=== PATIENT | male | born 1960 | race Caucasian/White ===

== ENCOUNTER 2017-08-20 15:04 | Emergency (ER) | payer MEDICAID, MEDICARE ==
[~2017-08-20 15:04] MED LIST: ESCI20TA PO; FINA1TAB2 PO; GABA300C3 PO; IBUP800T23 PO; LISI-360 PO; LOPI600T PO; PRIL40CA PO; PRIM50 PO; RANI150T PO; REST30CA PO; SERT-129 PO; TAMS0.4C4
[2017-08-20 15:11] VITALS: BP 165/95; PULSE 72; RESP 18; TEMP 98.1; O2SAT 99
[2017-08-20] MEDS ORDERED: AMLO10TA2 PO (15:28)
[2017-08-20] MEDS ORDERED: CYCL5TAB PO (15:28)
[2017-08-20] MEDS ORDERED: BACL10TA PO (15:28)
[2017-08-20] MEDS ORDERED: HYDR-3516 PO (15:28)
[2017-08-20] MEDS ORDERED: GABA300C5 PO (15:28)
[2017-08-20] MEDS ORDERED: TEMA15CA PO (15:28)
[2017-08-20] MEDS ORDERED: OMEP20TA93 PO (15:28)
[2017-08-20] MEDS ORDERED: GEMF600T PO (15:28)
[2017-08-20] MEDS ORDERED: ESCI20TA PO (15:28)
[2017-08-20] MEDS ORDERED: BACT800T5 PO (16:03)
--- NOTE | 2017-08-20 16:03 | PD ---
HPI Chief Complaint: Skin Problem Time Seen by Provider: 15:52 Travel History International Travel<30 days: No Contact w/Intl Traveler<30days: No Traveled to known affect area: No History of Present Illness HPI This is a 57-year-old male here with possible wound infection to the right lower extremity. He sustained an abrasion to the area approximately 2 weeks ago. The area was healing and he has been applying local wound care with hydrogen peroxide and antibiotic ointment. Today he noticed the area looks slightly red and swollen. No fever chills. Symptom severity is mild to moderate. No aggravating or alleviating factors. PFSH Past Medical History Anxiety: Yes Depression: Yes Cancer: No Cardiovascular Problems: No Diabetes: No Diminished Hearing: No Endocrine: No Genitourinary: No Hepatitis: No Hiatal Hernia: No Hypertension: Yes Immune Disorder: No Medical other: Yes (HYPERLIPIDEMIA) Musculoskeletal: Yes (CHRONIC BACK PAIN) Neurologic: No Psychiatric: No Reproductive: No Respiratory: No Thyroid Disease: No Influenza Vaccination: No Past Surgical History Abdominal Surgery: No Body Medical Devices: "BACK HARDWARE" Cardiac Surgery: No Ear Surgery: No Endocrine Surgery: No Eye Surgery: No Genitourinary Surgery: No Gynecologic Surgery: Yes Joint Replacement: No Neurologic Surgery: No Oral Surgery: No Pacemaker: No Thoracic Surgery: No Social History Alcohol Use: Yes (DAILY) Tobacco Use: No Substance Use: No Allergies-Medications (Allergen,Severity, Reaction): Coded Allergies: Penicillins (Verified Adverse Reaction, Unknown, UNKNOWN, 08/20/17) FROM CHILDHOOD STATES UNKNOWN REACTION. Reported Meds & Prescriptions Reported Meds & Active Scripts Active Bactrim DS (Sulfamethoxazole-Trimethoprim) 800-160 Mg Tab 1 Tab PO BID Reported Omeprazole 20 Mg Tab 20 Mg PO BID Flexeril (Cyclobenzaprine HCl) 5 Mg Tab 5 Mg PO TID Gemfibrozil 600 Mg Tab 600 Mg PO BIDAC Take 30 minutes prior to breakfast and dinner. Gabapentin 300 Mg Cap 300 Mg PO QID Escitalopram (Escitalopram Oxalate) 20 Mg Tab 20 Mg PO DAILY Baclofen 10 Mg Tab 10 Mg PO TID Amlodipine (Amlodipine Besylate) 10 Mg Tab 10 Mg PO DAILY Hydrocodone-Acetamin 5-325 mg (Hydrocodone/Acetaminophen) 5 Mg-325 Mg Tablet 1 Tab PO Q4-6H PRN Temazepam 15 Mg Cap 15 Mg PO HS PRN Review of Systems Except as stated in HPI: all other systems reviewed are Neg General / Constitutional: No: Fever Eyes: No: Visual changes HENT: No: Headaches Cardiovascular: No: Chest Pain or Discomfort Respiratory: No: Shortness of Breath Gastrointestinal: No: Abdominal Pain Genitourinary: No: Dysuria Physical Exam Narrative GENERAL: Alert & well appearing 57 year old male. SKIN: Warm and dry. HEAD: Normocephalic. EYES: No injection or drainage. NECK: Supple RESPIRATORY: No accessory muscle use. GASTROINTESTINAL: nondistended. Musculoskeletal: No cyanosis or edema. Right lower extremity: 1 cm dry scab to the anterior aspect of the ankle. Scab is surrounded by an area of induration without fluctuance. No surrounding cellulitis or lymphangitis. BACK: Nontender without obvious deformity. No CVA tenderness. Data Data Last Documented VS Vital Signs Date Time Temp Pulse Resp B/P (MAP) Pulse Ox O2 Delivery O2 Flow Rate FiO2 08/20/17 15:11 98.1 72 18 165/95 (118) 99 MDM Medical Decision Making Medical Screen Exam Complete: Yes Emergency Medical Condition: Yes Differential Diagnosis Abscess, cellulitis, lymphangitis Narrative Course This is a 57-year-old male here with a mild wound infection to the right lower extremity. No cellulitis or lymphangitis. He will be treated with Bactrim. Diagnosis Primary Impression: Wound infection Referrals: Primary Care Physician Additional Instructions: Antibiotics as directed. Apply warm compresses as directed. Return if you develop new or worsening symptoms. Scripts Sulfamethoxazole-Trimethoprim (Bactrim DS) 800-160 Mg Tab 1 TAB PO BID for Infection, #20 TAB 0 Refills Prov: Chloe Ariza 08/20/17 Disposition: 01 DISCHARGE HOME Condition: Stable Chloe Ariza Aug 20, 2017 16:03
== END 2017-08-20 16:20 | disposition home or self-care (01) ==
LOC: PHEFT 15:04
DX: S80.811A Abrasion, right lower leg, initial encounter (principal); L08.9 Local infection of the skin and subcutaneous tissue, unspecified; F41.9 Anxiety disorder, unspecified; F32.9 Major depressive disorder, single episode, unspecified; I10 Essential (primary) hypertension; E78.5 Hyperlipidemia, unspecified; X58.XXXA Exposure to other specified factors, initial encounter; Z88.0 Allergy status to penicillin; Z79.899 Other long term (current) drug therapy
CPT/HCPCS: 99283